=== PATIENT | male | born 1990 | race Caucasian/White ===

== ENCOUNTER 2016-05-19 15:07 | Emergency (ER) | payer SELFPAY ==
--- NOTE | 2016-06-18 21:25 | ER ---
ADMIT: 05/19/2016 RM/LOC: ER [facility] MR#: [id number] [address] [id number] LISETTE GONZALEZ [address] [place] [address] Emergency Room Report SEX: M AGE: 26 : 1990 DATE: 05/19/2016 CHIEF COMPLAINT: Right knee pain. HISTORY OF PRESENT ILLNESS: This is a pleasant 26-year-old, white male presenting to the ER for evaluation of his right knee. The patient states that he was playing basketball and football, approximately 3 weeks ago when he awoke the next day, experiencing significant right knee pain. The patient states he does not recall the exact mechanism for his injury. Denies any episodes of twisting or other traumatic event. The patient denies any clicking, popping, and snapping when he ambulating. He does admit he has some difficulty bearing weight secondary to pain. Currently, he rates the pain severe. Says he has been using ice and Tylenol as needed for pain with little relief. He has not been evaluated for this condition previously. The patient is otherwise healthy. 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 COURSE IN THE ER: The patient was seen and examined, has tenderness along the lateral aspect of his right knee, mild pain with lateral collateral stress testing. No significant effusion or ecchymosis appreciated on exam. Physical exam findings were not consistent with observed behavior, ambulating in the ER, and moving to the table without difficulty. The patient was educated on typical treatment plan for musculoskeletal injuries to include rest, ice, compression, and elevation. Due to his single kidney, he was encouraged to use Tylenol as needed for pain. He was given the name of Dr. Andrews as a physician as to which to establish primary care with. If needed, he was instructed to see Dr. Andrews should further workup be needed to include MRI or orthopedic evaluation. The patient's questions were sought and answered to the best of our ability. He agreed to the plan moving forward, was discharged from the ER in stable condition. ASHELY Molina / Yvon Schwartz MD / aditi JOB #: [id number] CC: Yvon Schwartz MD, Attending Physician Ten Andrews MD, Family Physician
== END 2016-05-19 15:45 | disposition home or self-care (01) ==
LOC: ER 15:07
DX: S83.421A Sprain of lateral collateral ligament of right knee, initial encounter (principal); Z88.0 Allergy status to penicillin; X58.XXXA Exposure to other specified factors, initial encounter; Y93.67 Activity, basketball